=== PATIENT | male | born 1980 | race Caucasian/White ===

== ENCOUNTER 2016-05-30 00:28 | Emergency (ER) | payer SELFPAY ==
[~2016-05-30] VITALS: Ht 170.2 cm; Wt 57.0 kg
[~2016-05-30 00:28] MED LIST: CHLO.12%30 SSP; MMW SSP; PENI500T PO; TRAM50 PO; Z.0.NO CURRENT MEDS
[2016-05-30 00:33] VITALS: BP 120/70; PULSE 78; RESP 18; TEMP 98.1; O2SAT 98
[2016-05-30] MEDS ORDERED: SODIUM CHLOR 0.9% 1000 ML INJ 1,000 ML IV ONE ×2 (01:15→04:15)
--- NOTE | 2016-05-30 01:22 | PD ---
HPI Chief Complaint: Pain: Acute or Chronic Time Seen by Provider: 01:21 Travel History International Travel<30 days: No Contact w/Intl Traveler<30days: No Traveled to known affect area: No History of Present Illness HPI 35-year-old male with no significant medical history presents to the emergency department for evaluation of her lateral foot pain. Patient states that he is homeless. He has been walking everywhere. He reports blisters on his bilateral heels. Patient is with a bizarre affect and is having difficulty communicating with us exactly what he needs. He is very uncertain. He appears mildly paranoid. Denies illicit drug use. Denies psychiatric history. He has no other symptoms to report at this time. PFS Past Medical History Arthritis: Yes Anxiety: Yes Depression: Yes Cancer: No Cardiovascular Problems: No Diabetes: No Diminished Hearing: No Endocrine: No Genitourinary: Yes Hepatitis: No Hiatal Hernia: Yes (WITH MESH REPAIR) Kidney Stones: Yes Musculoskeletal: Yes Neurologic: No Psychiatric: Yes Respiratory: No Thyroid Disease: No Past Surgical History Abdominal Surgery: Yes (INGUINAL HERNIA REPAIR) Cardiac Surgery: No Ear Surgery: No Endocrine Surgery: No Eye Surgery: No Genitourinary Surgery: Yes (ESWL) Gynecologic Surgery: No Oral Surgery: No Pacemaker: No Thoracic Surgery: No Social History Alcohol Use: Yes (OCC) Tobacco Use: Yes (1 CIGGARS PPD) Substance Use: Yes (METH, DILAUDID, MORPHINE) Allergies-Medications (Allergen,Severity, Reaction): Coded Allergies: No Known Allergies (Verified , 05/30/16) Reported Meds & Prescriptions Reported Meds & Active Scripts Active No Active Prescriptions or Reported Medications Review of Systems Except as stated in HPI: all other systems reviewed are Neg Physical Exam Narrative GENERAL: Thin male patient, ambulatory no acute distress SKIN: Warm and dry. There are 2 blisters, 6 cm in diameter on the bilateral posterior heels that extend to the inferior aspect of the foot.. HEAD: Atraumatic. Normocephalic. EYES: Pupils equal and round. No scleral icterus. No injection or drainage. ENT: No nasal bleeding or discharge. Mucous membranes pink and moist. NECK: Trachea midline. No JVD. CARDIOVASCULAR: Regular rate and rhythm. No murmur appreciated. RESPIRATORY: No accessory muscle use. Clear to auscultation. Breath sounds equal bilaterally. GASTROINTESTINAL: Abdomen soft, non-tender, nondistended. Hepatic and splenic margins not palpable. MUSCULOSKELETAL: No obvious deformities. No clubbing. No cyanosis. No edema. NEUROLOGICAL: Awake and alert. No obvious cranial nerve deficits. Motor grossly within normal limits. Normal speech. Data Data Last Documented VS Vital Signs Date Time Temp Pulse Resp B/P Pulse Ox O2 Delivery O2 Flow Rate FiO2 05/30/16 00:33 98.1 78 18 120/70 98 Room Air Orders Iv Access Insert/Monitor (05/30/16 01:15) Complete Blood Count With Diff (05/30/16 01:15) Basic Metabolic Panel (Bmp) (05/30/16 01:15) Urinalysis - C+S If Indicated (05/30/16 01:15) Creatine Kinase (Cpk) (05/30/16 01:15) Sodium Chlor 0.9% 1000 Ml Inj (Ns 1000 M (05/30/16 01:15) CKMB (05/30/16 01:40) CKMB% (05/30/16 01:40) Sodium Chlor 0.9% 1000 Ml Inj (Ns 1000 M (05/30/16 04:15) Psych Screen (05/30/16 04:05) Ketorolac Inj (Toradol Inj) (05/30/16 04:15) Drug Screen, Random Urine (05/30/16 04:22) Ct Brain W/O Iv Contrast(Rout) (05/30/16 ) Labs Laboratory Tests Test 05/30/16 05/30/16 01:40 03:00 White Blood Count 15.8 TH/MM3 Red Blood Count 4.70 MIL/MM3 Hemoglobin 14.9 GM/DL Hematocrit 42.6 % Mean Corpuscular Volume 90.6 FL Mean Corpuscular Hemoglobin 31.6 PG Mean Corpuscular Hemoglobin 34.9 % Concent Red Cell Distribution Width 13.4 % Platelet Count 155 TH/MM3 Mean Platelet Volume 9.6 FL Neutrophils (%) (Auto) 77.0 % Lymphocytes (%) (Auto) 13.1 % Monocytes (%) (Auto) 9.6 % Eosinophils (%) (Auto) 0.2 % Basophils (%) (Auto) 0.1 % Neutrophils # (Auto) 12.1 TH/MM3 Lymphocytes # (Auto) 2.1 TH/MM3 Monocytes # (Auto) 1.5 TH/MM3 Eosinophils # (Auto) 0.0 TH/MM3 Basophils # (Auto) 0.0 TH/MM3 CBC Comment DIFF FINAL Differential Comment Sodium Level 137 MEQ/L Potassium Level 4.3 MEQ/L Chloride Level 102 MEQ/L Carbon Dioxide Level 28.1 MEQ/L Anion Gap 7 MEQ/L Blood Urea Nitrogen 20 MG/DL Creatinine 1.14 MG/DL Estimat Glomerular Filtration 73 ML/MIN Rate Random Glucose 104 MG/DL Calcium Level 9.1 MG/DL Total Creatine Kinase 542 U/L Creatine Kinase MB 4.8 NG/ML Creatine Kinase MB % 0.9 % Urine Color YELLOW Urine Turbidity CLEAR Urine pH 6.0 Urine Specific [place] 1.026 Urine Protein TRACE mg/dL Urine Glucose (UA) NEG mg/dL Urine Ketones 10 mg/dL Urine Occult Blood MOD Urine Nitrite NEG Urine Bilirubin NEG Urine Urobilinogen 2.0 MG/DL Urine Leukocyte Esterase NEG Urine RBC 93 /hpf Urine WBC 4 /hpf Urine Mucus FEW /lpf Microscopic Urinalysis Comment CULT NOT INDICATED MDM Medical Decision Making Medical Screen Exam Complete: Yes Emergency Medical Condition: Yes Medical Record Reviewed: Yes Differential Diagnosis Blisters versus contact dermatitis versus cellulitis Acute psychosis versus mood disorder versus personality disorder versus adjustment reaction disorder versus substance abuse Narrative Course 35-year-old male presents to emergency department for evaluation. Patient is this are. He is not clearly communicating his intentions being here in the emergency department. He does have blisters on his bilateral heels however he states keeps saying that he does not feel well and that something isn't right. He denies illicit drug use. He then goes to talk about his parents and then he is very anxious about interventions that are being ordered. CBC is a mild leukocytosis of 15.8. BMP is without acute concern. BUN is elevated at 20. Total creatine kinase is 542. Patient is given normal saline fluid less. Urinalysis is with 10 ketones, moderate occult blood, 93 RBCs, few mucus. Culture is not indicated. Patient has history of kidney stones. He he is not reporting any significant pain. I have advised that he follow-up with urology. Patient continues with bizarre behavior and does not have any documented psych history here in the emergency department. I have ordered a CT of his brain to evaluate for possible cause of his behavior. Pending no acute abnormality, he is medically cleared to undergo psychiatric screening for further evaluation and disposition recommendation. Diagnosis Primary Impression: Friction blister of the foot Qualified Code: S90.829A - Friction blister of the foot, unspecified laterality, initial encounter Additional Impression: Psychosis Qualified Code: F29 - Psychosis, unspecified psychosis type Scripts No Active Prescriptions or Reported Meds Condition: Stable Yael Patel May 30, 2016 01:21
[2016-05-30 01:59] LABS: AUTOMATED NEUTROPHIL # 12.1 TH/MM3 (1.8-7.7); BASOPHIL % 0.1 % (0.0-2.0); EOSINOPHIL % 0.2 % (0.0-4.0); HEMATOCRIT 42.6 % (39.0-51.0); HEMO FLAGS DIFF FINAL; LYMPH % 13.1 % (9.0-44.0); LYMPHOCYTE # 2.1 TH/MM3 (1.0-4.8); MEAN CELL VOLUME 90.6 FL (80.0-100.0); MEAN CORPUSCULAR HEMOGLOBIN 31.6 PG (27.0-34.0); MEAN CORPUSCULAR HGB CONC 34.9 % (32.0-36.0); MONO % 9.6 % (0.0-8.0); PLATELET COUNT 155 TH/MM3 (150-450); RED CELL DISTRIBUTION WIDTH 13.4 % (11.6-17.2); WHITE BLOOD COUNT 15.8 TH/MM3 (4.0-11.0)
[2016-05-30 02:08] LABS: BICARBONATE 28.1 MEQ/L (21.0-32.0); POTASSIUM 4.3 MEQ/L (3.5-5.1)
[2016-05-30 02:25] LABS: CKMB 4.8 NG/ML (0.5-3.6)
[2016-05-30] MEDS ORDERED: KETOROLAC TROMETHAMINE 30 MG/ML (IVP) VIAL IV PUSH ONE (04:15)
[2016-05-30 04:23] LABS: BLOOD, URINE MOD (NEG); COMMENT (UR) CULT NOT INDICATED; CULTURE IF INDICATED CULT NOT INDICATED; GLUCOSE,URINE NEG (NEG); KETONE, URINE 10 mg/dL (NEG); MUCUS URINE FEW /lpf (OCC); NITRITE,URINE NEG (NEG); URINE COLOR YELLOW (YELLW/STRAW)
[2016-05-30 05:01] LABS: AMPHETAMINE, URINE NEG (NEG); BARBITURATES, URINE NEG (NEG); COCAINE, URINE NEG (NEG)
--- NOTE | 2016-05-30 05:18 | RADRPT ---
EXAM DATE/TIME: 05/30/2016 04:59 [facility] COMPARISON: No previous studies available for comparison. INDICATIONS : Altered mental status, confusion. RADIATION DOSE: 28.55 CTDIvol (mGy) MEDICAL HISTORY : None SURGICAL HISTORY : None. ENCOUNTER: Initial ACUITY: 1 day PAIN SCALE: 0/10 LOCATION: cranial TECHNIQUE: Multiple contiguous axial images were obtained of the head. Using automated exposure control and adj ustment of the mA and/or kV according to patient size, radiation dose was kept as low as reasonably a chievable to obtain optimal diagnostic quality images. FINDINGS: CEREBRUM: The ventricles are normal for age. No evidence of midline shift, mass lesion, hemorrhage or acute in farction. No extra-axial fluid collections are seen. POSTERIOR FOSSA: The cerebellum and brainstem are intact. The 4th ventricle is midline. The cerebellopontine angle i s unremarkable. EXTRACRANIAL: The visualized portion of the orbits is intact. SKULL: The calvaria is intact. No evidence of skull fracture. CONCLUSION: Normal examination. Milan Day MD on May 30, 2016 at 5:16 Board Certified Radiologist. This report was verified electronically.
[2016-05-30 05:40] VITALS: BP 100/63; PULSE 72; RESP 16; O2SAT 96
[2016-05-30 07:00] VITALS: BP 115/77; PULSE 72; RESP 16; TEMP 98.4; O2SAT 99
[2016-05-30 10:08] VITALS: BP 118/77
== END 2016-05-30 10:17 | disposition home or self-care (01) ==
LOC: NEPB 00:28
DX: S90.822A Blister (nonthermal), left foot, initial encounter (principal); F29 Unspecified psychosis not due to a substance or known physiological condition; Z87.442 Personal history of urinary calculi; S90.821A Blister (nonthermal), right foot, initial encounter; Y93.01 Activity, walking, marching and hiking; Y92.9 Unspecified place or not applicable; Z59.0 Homelessness; R41.82 Altered mental status, unspecified
CPT/HCPCS: 70450; 80048; 80307; 81001; 82550; 82552; 85025; 96361; 96374; 99284; J1885; J7030

== ENCOUNTER 2017-05-29 17:14 | Inpatient (IN) | payer OTHER ==
[~2017-05-29] VITALS: Ht 170.2 cm; Wt 56.1 kg
[2017-05-29 17:55] VITALS: BP 104/77; PULSE 89; RESP 14; O2SAT 99
--- NOTE | 2017-05-29 18:37 | PD ---
HPI Chief Complaint: Psychiatric Symptoms Time Seen by Provider: 18:32 Travel History International Travel<30 days: No Contact w/Intl Traveler<30days: No Traveled to known affect area: No History of Present Illness HPI This is a 36-year-old male who presents under ex parte a signed by a magistrate judge. According to the paperwork the patient's mother reports over the past 2 years he has been acting bizarre, potentially suicidal. According to the paperwork many friends and the family members agree. The patient reports that he feels fine. He denies any drug or alcohol use. He denies any suicidal or homicidal ideation. The patient has no complaints at this time. PFS Past Medical History Medical History: Denies Significant Hx Arthritis: Yes Anxiety: Yes Depression: Yes Cancer: No Cardiovascular Problems: No Diabetes: No Diminished Hearing: No Endocrine: No Gastrointestinal Disorders: Yes Genitourinary: Yes Hepatitis: No Hiatal Hernia: Yes (WITH MESH REPAIR) Kidney Stones: Yes Musculoskeletal: Yes Neurologic: No Psychiatric: Yes Respiratory: No Thyroid Disease: No Tetanus Vaccination: Unknown Influenza Vaccination: No Past Surgical History Surgical History: No Previous Surgery Abdominal Surgery: Yes (INGUINAL HERNIA REPAIR) Cardiac Surgery: No Ear Surgery: No Endocrine Surgery: No Eye Surgery: No Genitourinary Surgery: Yes (ESWL) Gynecologic Surgery: No Oral Surgery: No Pacemaker: No Thoracic Surgery: No Other Surgery: Yes Social History Alcohol Use: No Tobacco Use: No Substance Use: No Allergies-Medications (Allergen,Severity, Reaction): Coded Allergies: No Known Allergies (Verified , 05/30/16) Reported Meds & Prescriptions Reported Meds & Active Scripts Active No Active Prescriptions or Reported Medications Review of Systems Except as stated in HPI: all other systems reviewed are Neg Physical Exam Narrative GENERAL: Poorly groomed male in no acute distress SKIN: Warm and dry. HEAD: Atraumatic. Normocephalic. EYES: Pupils equal and round. No scleral icterus. No injection or drainage. ENT: No nasal bleeding or discharge. Mucous membranes pink and moist. NECK: Trachea midline. No JVD. CARDIOVASCULAR: Regular rate and rhythm. No murmur appreciated. RESPIRATORY: No accessory muscle use. Clear to auscultation. Breath sounds equal bilaterally. MUSCULOSKELETAL: No obvious deformities. NEUROLOGICAL: Awake and alert. No obvious cranial nerve deficits. Motor grossly within normal limits. Normal speech. PSYCHIATRIC: Poor eye contact, quiet, paranoid, insight and judgment appear limited. Data Data Last Documented VS Vital Signs Date Time Temp Pulse Resp B/P (MAP) Pulse Ox O2 Delivery O2 Flow Rate FiO2 05/29/17 17:55 89 14 104/77 (86) 99 Room Air Orders Orders Complete Blood Count With Diff (05/29/17 17:32) Comprehensive Metabolic Panel (05/29/17 17:32) Thyroid Stimulating Hormone (05/29/17 17:32) Psych Screen (05/29/17 17:32) Drug Screen, Random Urine (05/29/17 17:32) MDM Medical Decision Making Medical Screen Exam Complete: Yes Emergency Medical Condition: Yes Medical Record Reviewed: Yes Differential Diagnosis Schizophrenia, bipolar disorder, acute psychosis, major depressive disorder, substance induced mood disorder Narrative Course 36-year-old male presents under ex parte for psychiatric evaluation. Mental health screening discussed with the patient. Psychiatric screen ordered. He is refusing lab work and there is no indication to force him to undertake lab work at this time. He is medically cleared for psychiatric disposition. Diagnosis Primary Impression: Medical clearance for psychiatric admission Scripts No Active Prescriptions or Reported Meds Cristhian Morocho May 29, 2017 18:37
[2017-05-29 19:47] LABS: BASOPHIL % 0.5 % (0.0-2.0); EOSINOPHIL # 0.2 TH/MM3 (0-0.4); EOSINOPHIL % 2.3 % (0.0-4.0); HEMOGLOBIN 16.2 GM/DL (13.0-17.0); LYMPH % 15.3 % (9.0-44.0); LYMPHOCYTE # 1.4 TH/MM3 (1.0-4.8); MEAN CELL VOLUME 89.9 FL (80.0-100.0); MEAN CORPUSCULAR HEMOGLOBIN 32.4 PG (27.0-34.0); MEAN PLATELET VOLUME 9.4 FL (7.0-11.0); MONOCYTE # 0.7 TH/MM3 (0-0.9); NEUT % 74.9 % (16.0-70.0); PLATELET COUNT 174 TH/MM3 (150-450); RED BLOOD COUNT 5.01 MIL/MM3 (4.50-5.90); RED CELL DISTRIBUTION WIDTH 13.8 % (11.6-17.2); WHITE BLOOD COUNT 9.4 TH/MM3 (4.0-11.0)
[2017-05-29 19:55] LABS: ALBUMIN 4.2 GM/DL (3.4-5.0); ALT (GPT) 32 U/L (12-78); AST (GOT) 34 U/L (15-37); BICARBONATE 28.9 MEQ/L (21.0-32.0); BLOOD UREA NITROGEN 12 MG/DL (7-18); CALCIUM 9.8 MG/DL (8.5-10.1); CHLORIDE 105 MEQ/L (98-107); CREATININE 1.02 MG/DL (0.60-1.30); GLOMERULAR FILTRATION RATE 82 ML/MIN (>89); GLUCOSE,RANDOM 102 MG/DL (74-106); SODIUM (NA) 139 MEQ/L (136-145)
[2017-05-29 20:05] LABS: ALKALINE PHOSPHATASE 76 U/L (45-117); TOTAL BILIRUBIN ADULT 0.4 MG/DL (0.2-1.0)
[2017-05-29 22:19] VITALS: BP 115/69; PULSE 58; RESP 18; O2SAT 100
[2017-05-30 06:44] VITALS: BP 104/58; PULSE 68; RESP 17; O2SAT 99
--- NOTE | 2017-05-30 08:42 | HHI.HP ---
Provisional Diagnosis Admission Date [place] I. Unspecified psychosis, r/o substance induced psychosis, r/o schizophrenia, r/o schizoaffective disorder [place] II. Deferred [place] III. No significant medical history [place] IV. 2 years ago, unemployed, noncompliance with psychotropics [place] V. 35 Certification of Person's Competence To Provide Express and Informed Consent I have personally examined Ernesto Franz , a person being served at [facility] on, May 30, 2017 08:17. Express and informed consent means consent voluntarily given in writing, by a competent person, after sufficient explanation and disclosure of the subject matter involved to enable the person to make a knowing and willful decision without any element of force, fraud, deceit, duress, or other form of constraint or coercion. This person is 18 years of age or older, is not now known to be incompetent to consent to treatment with a guardian advocate, and does not have a health care surrogate or proxy currently making medical treatment decisions. I have found this person to be one of the following: [] Competent to provide express and informed consent, as defined above, for voluntary admission to this facility and is competent to provide express and informed consent for treatment. He/she has the consistent capacity to make well reasoned, willful, and knowing decisions concerning his or her medical or mental health treatment. The person fully and consistently understands the purpose of the admission for examination/placement and is fully capable of personally exercising all rights assured [place] [X] Incompetent to provide express and informed consent to voluntary admission, and this is incompetent to provide express and informed consent to treatment. The person must be transferred to involuntary status and a petition for a guardian advocate filed with the Circuit Court. [] Refusing to provide express and informed consent to voluntary admission but is competent to provide express and informed consent for treatment. The person must be discharged or transferred to involuntary status. Form shall be completed within 24 hours of a person's arrival at the receiving facility and filed in the clinical record of each person: 1. Admitted on a voluntary basis 2. Permitted to provide express and informed consent to his/her own treatment 3. Allowed to transfer from involuntary to voluntary status 4. Prior to permitting a person to consent to his or her own treatment after having been previously found incompetent to consent to treatment. History of Present Illness Capacity: Lacks Capacity HPI The patient a 36-year-old man, , domiciled with his mother, unemployed, with psychiatric history of depression, 1 previous psychiatric hospitalization in [facility], no established outpatient care, the patient is not taking any psychotropic at this moment, no previous suicidal attempts, he denies the use of illegal drugs and alcohol, no significant medical history, who presents under ex-parte a signed by a probate judge. According to the paperwork the patient's mother reports over the past 2 years he has been acting bizarre, potentially suicidal. According to the paperwork many friends and the family members agree. The patient reports that he feels fine. He denies any drug or alcohol use. He denies any suicidal or homicidal ideation. The patient has no complaints at this time. Patient was seen today for psychiatric evaluation in the psychiatric ER. Chart was reviewed. The case was discussed with the charge and medical student Dr. Almaguer, collateral information from his mother Mary Thompson, was obtained. On psychiatric evaluation the patient is found sleeping in his bed, but he is arousable. The patient reports that he feels okay, says that he wants to go home "I have things to do". However, the patient is guarded, internally stimulated, with prominent blocking thought, poverty of speech and problems with word finding. Patient seems to be paranoid, staring to the roof, avoiding eye contact, and at times even laughing inappropriately and with a very odd affect and oddly related. The patient does not elaborate about the reason and circumstances of the ex-parted. He says that he is here because "maybe my ideas has been no very clear", he also says that "sometimes my thoughts are fast". But the patient will not elaborate about any of these statements. The patient denies suicidal and homicidal ideation, he denies visual and auditory hallucinations. during my evaluation I asked to the patient if he's scared about people in the street trying to read his mind and he became very thoughtful about this, at the same time that when I ask him to watch the camera the patient became increasingly suspicious and was unable to look to the camera was visibly scared. The patient denies the use of illegal drugs and alcohol. We called his mother for collateral information, the mother states that the patient has been included, isolated and not leaving his room very often for the last 2 years , but these behavior has exacerbated in the last 2 weeks. Says that the patient has not been sleeping, not eating, not bathing, not taking care of himself. She says that the patient was admitted once in the past in [facility] voluntarily, being July 2016, he was given medication, most probably never took it, but she doesn't remember the name of the medication and she doesn't remember what diagnosis was given to him. She also provide information that the patient has a sibling with psychiatric illnesses, his sister has bipolar disorder. She also added patient's 2 years ago and since then the patient has been most probably depressed and his behavior has changed. She also states that the patient has been verbalizing suicidal ideation. Review of Systems Constitutional: DENIES: Diaphoretic episodes, Fatigue, Fever, Weight gain, Weight loss, Chills, Dizziness, Change in appetite, Night Sweats Endocrine: DENIES: Heat/cold intolerance, Polydipsia, Polyuria, Polyphagia Eyes: DENIES: Blurred vision, Diplopia, Eye inflammation, Eye pain, Vision loss , Photosensitivity, Double Vision Ears, nose, mouth, throat: DENIES: Tinnitus, Hearing loss, Vertigo, Nasal discharge, Oral lesions, Throat pain, Hoarseness, Ear Pain, Running Nose, Epistaxis, Sinus Pain, Toothache, Odynophagia Respiratory: DENIES: Apneas, Cough, Snoring, Wheezing, Hemoptysis, Sputum production, Shortness of breath Cardiovascular: DENIES: Chest pain, Palpitations, Syncope, Dyspnea on Exertion , PND, Lower Extremity Edema, Orthopnea, Claudication Gastrointestinal: DENIES: Abdominal pain, Black stools, Bloody stools, Constipation, Diarrhea, Nausea, Vomiting, Difficulty Swallowing, Anorexia Genitourinary: DENIES: Sexual dysfunction, Urinary frequency, Urinary incontinence, Urgency, Hematuria, Dysuria, Nocturia, Penile Discharge, Testicular Pain, Testicular Swelling Musculoskeletal: DENIES: Joint pain, Muscle aches, Stiffness, Joint Swelling, Back pain, Neck pain Integumentary: DENIES: Abnormal pigmentation, Nail changes, Pruritus, Rash Hematologic/lymphatic: DENIES: Bruising, Lymphadenopathy Immunologic/allergic: DENIES: Eczema, Urticaria Neurologic: DENIES: Abnormal gait, Headache, Localized weakness, Paresthesias, Seizures, Speech Problems, Tremor, Poor Balance Psychiatric: COMPLAINS OF: Suicidal Ideation, Delusions, DENIES: Anxiety, Confusion, Mood changes, Depression, Hallucinations, Agitation, Homicidal Ideation Past Psych History Violence risk - others (6 mos) moderately elevated Violence risk - self (6 mos) elevated Substance Abuse History Drugs/Alcohol past 12 months The patient denies the use of alcohol and illegal drugs recently. However as per documentation review the patient has history of alcohol use disorder in the past Past Family Social History Coded Allergies: No Known Allergies (Verified , 05/30/16) No Active Prescriptions or Reported Meds No medications at this moment Family Psych History Sister with bipolar disorder Social History He was born and raised in [place], he lives with his mother in [facility], unemployed at the moment, is , his highest level of education is 10th grade Patient's Strengths (min. 2) Family support Physical Exam No tremors, no EPS, no psychomotor agitation or retardation, no stiffness present Vital Signs Vital Signs Date Time Temp Pulse Resp B/P (MAP) Pulse Ox O2 Delivery O2 Flow Rate FiO2 05/30/17 06:44 68 17 104/58 (73) 99 Room Air I/O 05/30/17 05/30/17 05/31/17 08:00 16:00 00:00 Intake Total 950 ml Balance 950 ml Lab Results Test 05/29/17 18:45 05/30/17 02:21 White Blood Count 9.4 TH/MM3 Red Blood Count 5.01 MIL/MM3 Hemoglobin 16.2 GM/DL Hematocrit 45.0 % Mean Corpuscular Volume 89.9 FL Mean Corpuscular Hemoglobin 32.4 PG Mean Corpuscular Hemoglobin Concent 36.0 % Red Cell Distribution Width 13.8 % Platelet Count 174 TH/MM3 Mean Platelet Volume 9.4 FL Neutrophils (%) (Auto) 74.9 % Lymphocytes (%) (Auto) 15.3 % Monocytes (%) (Auto) 7.0 % Eosinophils (%) (Auto) 2.3 % Basophils (%) (Auto) 0.5 % Neutrophils # (Auto) 7.0 TH/MM3 Lymphocytes # (Auto) 1.4 TH/MM3 Monocytes # (Auto) 0.7 TH/MM3 Eosinophils # (Auto) 0.2 TH/MM3 Basophils # (Auto) 0.0 TH/MM3 CBC Comment AUTO DIFF Differential Comment AUTO DIFF CONFIRMED Platelet Estimate NORMAL Platelet Morphology Comment NORMAL Blood Urea Nitrogen 12 MG/DL Creatinine 1.02 MG/DL Random Glucose 102 MG/DL Total Protein 8.0 GM/DL Albumin 4.2 GM/DL Calcium Level 9.8 MG/DL Alkaline Phosphatase 76 U/L Aspartate Amino Transf (AST/SGOT) 34 U/L Alanine Aminotransferase (ALT/SGPT) 32 U/L Total Bilirubin 0.4 MG/DL Sodium Level 139 MEQ/L Potassium Level 4.0 MEQ/L Chloride Level 105 MEQ/L Carbon Dioxide Level 28.9 MEQ/L Anion Gap 5 MEQ/L Estimat Glomerular Filtration Rate 82 ML/MIN Thyroid Stimulating Hormone 3rd Gen 1.190 uIU/ML Urine Opiates Screen NEG Urine Barbiturates Screen NEG Urine Amphetamines Screen NEG Urine Benzodiazepines Screen NEG Urine Cocaine Screen NEG Urine Cannabinoids Screen NEG Mental Status Examination Appearance: Appropriate Consciousness: Alert Orientation: x4 Motor Activity: Normal gait Speech: Hesitant, Slow Language: Adequate Fund of Knowledge: Adequate Attention and Concentration: Inadequate Memory: Unremarkable Mood: Oppositional Affect: Flat, Other (odd) Thought Process & Associations: Other (concrete, monotonous ) Thought Content: Bizarre thinking, Thought blocking, Preoccupations Hallucination Type: None Delusion Type: Bizarre, Paranoid Suicidal Ideation: Yes Suicidal Plan: No Suicidal Intention: No Homicidal Ideation: No Homicidal Plan: No Homicidal Intention: No Insight: Poor Judgment: Poor Assessment & Plan Problem List: (1) Unspecified psychosis ICD Codes: F29 - Unspecified psychosis not due to a substance or known physiological condition Assessment & Plan: On psychiatric evaluation today the patient presents with prominent blocking thought, poverty of speech, speech delay, flat and odd affect , visible paranoia, superficially cooperative with the interview. However, as per mother the patient has been secluded, isolated and not being himself for the last 2 years since his , but in the last 2 weeks these behavior has increased in severity, and the patient has not been taking showers, has not been eating, participating poorly in social activities, sleeping very poorly, and he has not been taking his medications. Apparently the patient has a psychiatric history, the mother doesn't know exactly, he supposed to be taking medication and he is not. We tried to get collateral information from [facility], where he was admitted, but we could not reach anybody at this moment. The patient denies the use of illegal drugs and alcohol, and his toxicology is negative. Definitely, the patient has an increased risk of danger to self and others due to the level of psychosis and he needs psychiatric admission for stabilization. At this moment is unclear what is this presentation at etiologically related with, but in the differential schizophrenia vs schizoaffective disorder vs substance-induced disorder should be carefully workout. I'm going to start the patient in Risperdal 1 mg twice a day for psychosis. I also going to start a petition for involuntary admission and would place a consult for second opinion. Patient will be transferred to [address]. steam table worker intervention for psychosocial assessment, collateral information, individual and group activities, and also to coordinate a safe discharge. Assessment & Plan Estimated LOS: Stoney Mota MD May 30, 2017 08:42
[2017-05-30] MEDS ORDERED: ACETAMINOPHEN 325 MG TAB PO PRN (09:00)
[2017-05-30] MEDS ORDERED: LORazepam 0.5 MG TAB PO PRN (09:00)
[2017-05-30] MEDS ORDERED: LORazepam 1 MG TAB PO PRN (09:00)
[2017-05-30] MEDS ORDERED: MAGNESIUM HYDROXIDE SUSP 30 ML CUP PO PRN (09:00)
[2017-05-30] MEDS ORDERED: LORazepam 2 MG/ML VIAL IM PRN ×2 (09:00)
[2017-05-30] MEDS: risperiDONE 0.5 MG TAB PO SCH ×2 (09:00→20:41)
[2017-05-30] MEDS: NICOTINE 21 MG/24 HR PATCH T-DERMAL SCH (09:00)
[2017-05-30] MEDS ORDERED: ALUMINUM/MAGNESIUM/SIMETH 30 ML CUP PO PRN (09:00)
[2017-05-30 18:00] VITALS: BP 105/58; PULSE 71; RESP 18; TEMP 98.7; O2SAT 97
[2017-05-30] MEDS: REMOVE OLD NICODERM (NICOTINE) PATCH T-DERMAL SCH (20:41)
[2017-05-31 06:03] VITALS: BP 102/59; PULSE 62; RESP 17
[2017-05-31] MEDS: risperiDONE 0.5 MG TAB PO SCH ×2 (09:00→20:56)
[2017-05-31] MEDS: NICOTINE 21 MG/24 HR PATCH T-DERMAL SCH (09:00)
--- NOTE | 2017-05-31 12:10 | PD.PSY.CON ---
Provisional Diagnosis Admission Date May 30, 2017 at 09:01 [place] I. Unspecified psychosis, r/o substance induced psychosis, r/o schizophrenia, r/o schizoaffective disorder [place] II. Deferred [place] III. No significant medical history [place] IV. 2 years ago, unemployed, noncompliance with psychotropics [place] V. 35 History of Present Illness Service Psychiatry Consult Requested By psychiatry Reason for Consult 2nd opinion Primary Care Physician No Primary Care Physician HPI Pt seen and discussed with staff. chart reviewed. Pt is a 36YOWM who was admitted to [facility] under an ex-parte alleging non compliance with psychiatric medications, bizarre behavior and suicidal ideations. Staff report that pt is seclusive to his room, only coming out for meals. He is noted to be paranoid and to present with prominent thought blocking and thought disorganization. He is disheveled and malodorous. He is a very poor historian and cooperates minimally with interview. He becomes visibly stressed with repeated interviewing and huddles deeper into blankets avoiding eye contact. Past Family Social History Coded Allergies: No Known Allergies (Verified Allergy, Unknown, 05/30/17) No Active Prescriptions or Reported Meds Current Medications Medications (Trade) Dose Ordered Sig/Stephanie Route Start Time Stop Time Status Last Admin (Ativan) 1 mg Q6H PRN PO 05/30/17 09:00 (Ativan Inj) 1 mg Q6H PRN IM 05/30/17 09:00 (Tylenol) 650 mg Q4H PRN PO 05/30/17 09:00 (Milk Of Magnesia Liq) 30 ml DAILY PRN PO 05/30/17 09:00 (Mag-Al Plus Susp Liq) 30 ml Q6H PRN PO 05/30/17 09:00 (Habitrol 21 Mg Patch.24 Hr) 1 patch DAILY T-DERMAL 05/30/17 09:00 (risperDAL) 0.5 mg BID PO 05/30/17 09:00 Miscellaneous Information 1 HS T-DERMAL 05/30/17 21:00 Family Psych History poor historian Social History lives with mother, unemployed, Patient's Strengths (min. 2) Family support Physical Exam Vital Signs Vital Signs Date Time Temp Pulse Resp B/P (MAP) Pulse Ox O2 Delivery O2 Flow Rate FiO2 2/10/18 06:03 62 17 102/59 (73) 05/30/17 18:00 98.7 97 05/30/17 06:44 Room Air Mental Status Examination Appearance: Appropriate Consciousness: Alert Orientation: x4 Motor Activity: Normal gait Speech: Hesitant, Slow Language: Adequate Fund of Knowledge: Adequate Attention and Concentration: Inadequate Memory: Unremarkable Mood: Oppositional Affect: Flat, Other (odd) Thought Process & Associations: Other (concrete, monotonous ) Thought Content: Bizarre thinking, Thought blocking, Preoccupations Hallucination Type: None Delusion Type: Bizarre, Paranoid Suicidal Ideation: No (unreliable) Suicidal Plan: No Suicidal Intention: No Homicidal Ideation: No Homicidal Plan: No Homicidal Intention: No Insight: Poor Judgment: Poor Assessment & Plan Problem List: (1) Unspecified psychosis ICD Codes: F29 - Unspecified psychosis not due to a substance or known physiological condition Assessment & Plan I agree that pt meets criteria for involuntary hospitalization secondary to florid psychosis, self neglect and recent history of suicidal ideations. 2nd opinion paperwork filled out as well as request for HCS. I attempted to contact pt's mother, Mary Schofield to request her to be HCS and to obtain consent for risperidone trial that Dr. Avilez ordered yesterday morning but mother was unavailable. A message was requesting return call. Estimated LOS: Merly Rodriguez MD May 31, 2017 12:10
[2017-05-31] MEDS: REMOVE OLD NICODERM (NICOTINE) PATCH T-DERMAL SCH (20:56)
[2017-06-01 05:43] VITALS: BP 113/56; PULSE 51; RESP 16; TEMP 98.6; O2SAT 96
[2017-06-01] MEDS: risperiDONE 0.5 MG TAB PO SCH ×2 (09:00→20:14)
[2017-06-01] MEDS: NICOTINE 21 MG/24 HR PATCH T-DERMAL SCH (09:00)
--- NOTE | 2017-06-01 11:21 | HHI.PYPN ---
Subjective Remarks Pt seen and discussed with staff. He remains with disorganized thought process and paranoia. He has only come out of room for meals. He has not engaged in any hygiene activities. Attempts to reach family for medication consents have not been successful. He states that he is planning to go fishing today after lunch. Mental Status Examination Appearance: Disheveled Consciousness: Alert Orientation: x4 Motor Activity: Normal gait Speech: Hesitant, Slow Language: Adequate Fund of Knowledge: Adequate Attention and Concentration: Inadequate Memory: Unremarkable Mood: Oppositional Affect: Flat, Other (odd) Thought Process & Associations: Other (concrete, monotonous ) Thought Content: Bizarre thinking, Thought blocking, Preoccupations Hallucination Type: None Delusion Type: Bizarre, Paranoid Suicidal Ideation: No (unreliable) Suicidal Plan: No Suicidal Intention: No Homicidal Ideation: No Homicidal Plan: No Homicidal Intention: No Insight: Poor Judgment: Poor Results Vitals/IOs Vital Signs Date Time Temp Pulse Resp B/P (MAP) Pulse Ox O2 Delivery O2 Flow Rate FiO2 06/01/17 05:43 98.6 51 16 113/56 (75) 96 05/30/17 06:44 Room Air Assessment & Plan Problem List: (1) Unspecified psychosis ICD Codes: F29 - Unspecified psychosis not due to a substance or known physiological condition Assessment & Plan Will continue to attempt to reach family for HCS and to get consent to start medication consent. Otherwise will have to wait until GA appointed. Will continue hospitalization for safety. Estimated LOS: days Justification for Cont. Inpt. severe disorganization of thought process and psychosis leading to high risk of self neglect. Merly Branch MD Jun 01, 2017 11:21
[2017-06-01 16:00] VITALS: BP 107/58; PULSE 64; RESP 17; TEMP 97.9; O2SAT 97
[2017-06-01] MEDS: REMOVE OLD NICODERM (NICOTINE) PATCH T-DERMAL SCH (20:14)
[2017-06-02 05:43] VITALS: BP 104/57; PULSE 63; RESP 17; TEMP 97.4; O2SAT 100
[2017-06-02] MEDS: NICOTINE 21 MG/24 HR PATCH T-DERMAL SCH (09:00)
--- NOTE | 2017-06-02 09:08 | HHI.PYPN ---
Subjective Chief Complaint: Psychosis Remarks Patient seen and examined with nurse. Chart reviewed. Ex parte reviewed. Case discussed with nursing staff who reports patient is watchful and guarded. On my examination today, the patient exhibits poor eye contact. He is fairly hypoverbal and flat. He denies any audiovisual hallucinations but appears internally preoccupied. He is indeed fairly guarded. He denies any SI or HI but seems unreliable to contract for safety. He does not believe that he has any mental illness and further believes that he should be released from the hospital. He has no physical complaints presently. Spoke with patient's mother/healthcare surrogate. She notes that the patient's 2 years ago and since that time he has been increasingly depressed. He has also begun to neglect self-care per mother. She notes that he has no prior psychiatric history. She does note that he has a cousin with depression and his sister has BPAD/schizophrenia. Patient's mother is in agreement with the treatment plan as outlined below. Review of Systems ROS Limitations: Psychotic, Poor Historian Except as stated in HPI: all other systems reviewed are Neg Mental Status Examination Appearance: Disheveled Consciousness: Alert Orientation: x4 Motor Activity: Other (no motor abnormalities noted) Speech: Hesitant, Slow Language: Adequate Fund of Knowledge: Adequate Attention and Concentration: Easily Distracted Memory: Unremarkable Mood: Other (denies issues with mood) Affect: Flat, Other (ongoing odd affect) Thought Process & Associations: Other (remains fairly concrete) Thought Content: Bizarre thinking, Thought blocking, Preoccupations Hallucination Type: Other (denies AVH but appears internally stimulated) Delusion Type: Other (quite guarded) Suicidal Ideation: No (unreliable to contract for safety) Suicidal Plan: No Suicidal Intention: No Homicidal Ideation: No (unreliable to contract for safety) Homicidal Plan: No Homicidal Intention: No Insight: Poor Judgment: Poor Results Labs Labs reviewed: CBC unremarkable. CMP unremarkable except for mildly decreased GFR. TSH within normal limits. Urine toxicology negative. Vitals/IOs Vital Signs Date Time Temp Pulse Resp B/P (MAP) Pulse Ox O2 Delivery O2 Flow Rate FiO2 06/02/17 05:43 97.4 63 17 104/57 (73) 100 05/30/17 06:44 Room Air Assessment & Plan Problem List: (1) Psychosis ICD Codes: F29 - Unspecified psychosis not due to a substance or known physiological condition Status: Acute Assessment & Plan Form of patient's mental illness seems most consistent with psychotic process, although mood disorder with psychotic features is in the differential. Discontinue Risperdal and replace with Seroquel 50mg BID with plans to titrate to effect. Check EKG for QTc. Ativan p.r.n. anxiety, Benadryl p.r.n. EPS or insomnia. Continue to monitor on high acuity unit. Continue other meds and care as ordered. Justification for Cont. Inpt. Med changes. Concern for impairment in self-care. Impairment in reality construction. Risk for decompensation in less restrictive setting. Discharge Planning Pending psychiatric stabilization. Problem Qualifiers (1) Psychosis: Qualified Codes: F28 - Other psychotic disorder not due to a substance or known physiological condition Lasha Crawford MD Jun 02, 2017 09:08
[2017-06-02] MEDS ORDERED: diphenhydrAMINE HCL 50 MG CAP PO PRN (09:15)
[2017-06-02] MEDS ORDERED: diphenhydrAMINE HCL 50 MG/ML VIAL IM PRN (09:15)
[2017-06-02] MEDS: QUEtiapine FUMARATE 25 MG TAB PO SCH (20:59)
[2017-06-02] MEDS: REMOVE OLD NICODERM (NICOTINE) PATCH T-DERMAL SCH (21:00)
[2017-06-03 05:36] VITALS: BP 96/53; PULSE 52; RESP 14; TEMP 97.8; O2SAT 94
[2017-06-03 07:59] VITALS: BP 99/58; PULSE 63; RESP 20; TEMP 97; O2SAT 100
[2017-06-03] MEDS: QUEtiapine FUMARATE 25 MG TAB PO SCH (08:39)
[2017-06-03] MEDS: NICOTINE 21 MG/24 HR PATCH T-DERMAL SCH (08:40)
--- NOTE | 2017-06-03 12:24 | HHI.PYPN ---
Subjective Chief Complaint: Psychosis Remarks Patient seen and examined with nurse and nurse practitioner. Chart reviewed. Case discussed with nursing staff reports the patient refused his EKG. Charting indicates that the patient 800% of meals yesterday and slept 7 hours. Case discussed in treatment team. On my examination today, the patient denies any issues with low mood or other depressive symptoms. He is an extremely vague historian, and although he produces a normal quantity of speech, it is rambling and largely content-free. He does acknowledge 's passing 2 years ago, but there does not seem to be much affect associated with this. He denies any SI/HI or AVH when asked. Seroquel was not given last night, reportedly because nurse was not aware consent had been obtained, and I have ordered Seroquel dose for this morning held because BP was on the lower side and I did not want to make patient hypotensive. No physical complaints. Review of Systems ROS Limitations: Psychotic, Poor Historian Except as stated in HPI: all other systems reviewed are Neg Mental Status Examination Appearance: Disheveled Consciousness: Alert Orientation: x4 Motor Activity: Other (no abnormal motor movements noted) Speech: Hesitant, Slow Language: Other (vague) Fund of Knowledge: Adequate Attention and Concentration: Easily Distracted Memory: Unremarkable Mood: Other (again denies issues with mood) Affect: Flat, Other (ongoing odd affect) Thought Process & Associations: Other (vague) Thought Content: Bizarre thinking, Thought blocking Hallucination Type: Other (denies AVH) Delusion Type: Other (somewhat guarded) Suicidal Ideation: No (unreliable to contract for safety) Suicidal Plan: No Suicidal Intention: No Homicidal Ideation: No (unreliable to contract for safety) Homicidal Plan: No Homicidal Intention: No Insight: Poor Judgment: Poor Results Labs Labs reviewed. Vitals/IOs Vital Signs Date Time Temp Pulse Resp B/P (MAP) Pulse Ox O2 Delivery O2 Flow Rate FiO2 06/03/17 07:59 97.0 63 20 99/58 (72) 100 Assessment & Plan Problem List: (1) Psychosis ICD Codes: F29 - Unspecified psychosis not due to a substance or known physiological condition Status: Acute Assessment & Plan I continue to suspect a psychotic process, possibly with some degree of thought disorganization manifesting itself in patient's vague, content-free speech. However, diagnosis is unclear. Patient certainly does not seem depressed, as had been reported by mother. I will request neuropsych eval with MMPI to try to clarify diagnosis. I will discontinue the Seroquel and replace with Abilify once consent has been obtained from [facility] as this latter agent is less associated with hypotension. I did leave a generic voicemail for patient's mother/ healthcare surrogate requesting a call back. Continue to monitor on an inpatient unit. Continue other medications and care as ordered. Justification for Cont. Inpt. Concern for impairment in self-care. Risk for decompensation in less restrictive environment. Discharge Planning Pending stabilization Request HC Surrog/Guard Advoc?: Yes Problem Qualifiers (1) Psychosis: Qualified Codes: F28 - Other psychotic disorder not due to a substance or known physiological condition Lasha Crawford MD Jun 03, 2017 12:24
[2017-06-03] MEDS ORDERED: ARIPiprazole 10 MG TAB PO SCH (14:15)
[2017-06-03 18:23] VITALS: BP 105/57; PULSE 64; RESP 16; TEMP 98.2; O2SAT 98
[2017-06-04 05:58] VITALS: BP 104/50; PULSE 65; RESP 16; TEMP 96.8; O2SAT 95
[2017-06-04 08:23] LABS: BICARBONATE 31.2 MEQ/L (21.0-32.0); BLOOD UREA NITROGEN 22 MG/DL (7-18); CALCIUM 8.9 MG/DL (8.5-10.1); CHLORIDE 104 MEQ/L (98-107); CHOLESTEROL 106 MG/DL (120-200); CREATININE 0.98 MG/DL (0.60-1.30); GLOMERULAR FILTRATION RATE 86 ML/MIN (>89); GLUCOSE,RANDOM 75 MG/DL (74-106); SODIUM (NA) 140 MEQ/L (136-145)
[2017-06-04 08:26] LABS: CHOLESTEROL/ HDL RATIO 1.79 RATIO; HDL CHOLESTEROL 59.1 MG/DL (40.0-60.0); LDL CHOLESTEROL 31 MG/DL (0-99); TRIGLYCERIDES 80 MG/DL (42-150)
--- NOTE | 2017-06-04 08:58 | HHI.PYPN ---
Subjective Chief Complaint: Psychosis Remarks Patient seen and examined with nurse and nurse practitioner. Chart reviewed. Patient is eating meals and slept 8 hours overnight. Case discussed with nursing staff who reports that the patient refused laboratories and had a marked , fearful reaction to even the idea of having laboratories drawn. Case discussed with counselor. On my examination today, the patient remains an exceedingly vague historian. He continues to exhibit odd, voluminous speech with limited information content. He does not believe he has a mental illness. He denies SI/HI/AVH. I try to ascertain why the patient had such a visceral reaction to having labs drawn (he subsequently did allow this to be done), but he cannot provide a meaningful answer. He does seem quite defensive on this point. No physical complaints presently. I again tried to reach patient's mother/HCS at the number listed in the EMR. I left a generic VM requesting a call back. Review of Systems ROS Limitations: Psychotic, Poor Historian Except as stated in HPI: all other systems reviewed are Neg Mental Status Examination Appearance: Disheveled Consciousness: Alert Orientation: x4 Motor Activity: Other (no motor abnormalities noted) Speech: Hesitant, Slow Language: Other (vague with limited information content) Fund of Knowledge: Adequate Attention and Concentration: Easily Distracted Memory: Unremarkable Mood: Other (no issues with mood) Affect: Other (odd affect. Somewhat irritable and defensive when discussing the blood draw.) Thought Process & Associations: Other (vague) Thought Content: Thought blocking Hallucination Type: Other (denies AVH) Delusion Type: Other (remains a little bit guarded) Suicidal Ideation: No (unreliable to contract for safety) Suicidal Plan: No Suicidal Intention: No Homicidal Ideation: No (unreliable to contract for safety) Homicidal Plan: No Homicidal Intention: No Insight: Poor Judgment: Poor Results Labs Test 06/04/17 06:04 Blood Urea Nitrogen 22 MG/DL Creatinine 0.98 MG/DL Random Glucose 75 MG/DL Calcium Level 8.9 MG/DL Sodium Level 140 MEQ/L Potassium Level 4.1 MEQ/L Chloride Level 104 MEQ/L Carbon Dioxide Level 31.2 MEQ/L Anion Gap 5 MEQ/L Estimat Glomerular Filtration Rate 86 ML/MIN Triglycerides Level 80 MG/DL Cholesterol Level 106 MG/DL LDL Cholesterol 31 MG/DL HDL Cholesterol 59.1 MG/DL Cholesterol/HDL Ratio 1.79 RATIO Labs reviewed. Vitals/IOs Vital Signs Date Time Temp Pulse Resp B/P (MAP) Pulse Ox O2 Delivery O2 Flow Rate FiO2 06/04/17 05:58 96.8 65 16 104/50 (68) 95 Assessment & Plan Problem List: (1) Psychosis ICD Codes: F29 - Unspecified psychosis not due to a substance or known physiological condition Status: Acute Assessment & Plan I continue to suspect some sort of psychotic process in this patient. Neuropsych eval is pending, as is OT eval. Anisha is on hold for lack of consent from [facility]; I did try to reach mother again today. Continue to monitor on inpatient unit. Continue other medications and care as ordered. Justification for Cont. Inpt. Monitoring for impairment in self-care. Discharge Planning Pending outcome of [place] [facility] tomorrow. Request HC Surrog/Guard Advoc?: Yes Problem Qualifiers (1) Psychosis: Qualified Codes: F28 - Other psychotic disorder not due to a substance or known physiological condition Lasha Crawford MD Jun 04, 2017 08:58
[2017-06-04 17:14] LABS: HEMOGLOBIN A1C 5.1 % (4.3-6.0)
[2017-06-04 17:35] VITALS: BP 108/56; PULSE 70; RESP 18; TEMP 97.6; O2SAT 98
--- NOTE | 2017-06-05 10:10 | HHI.DS ---
Psychiatry Discharge Summary Inpatient Psychiatric care?: Yes Advance Directive: No Reason Not Provided: DOES NOT HAVE Mental Health AdvanceDirective: No Health Care Proxy: No Admission Admission Date May 30, 2017 at 09:01 Admission Diagnosis: (1) Unspecified psychosis ICD Code: F29 - Unspecified psychosis not due to a substance or known physiological condition Brief History The patient a 36-year-old man, , domiciled with his mother, unemployed, with psychiatric history of depression, 1 previous psychiatric hospitalization in [facility], no established outpatient care, the patient is not taking any psychotropic at this moment, no previous suicidal attempts, he denies the use of illegal drugs and alcohol, no significant medical history, who presents under ex-parte a signed by a compensation advisor. According to the paperwork the patient's mother reports over the past 2 years he has been acting bizarre, potentially suicidal. According to the paperwork many friends and the family members agree. The patient reports that he feels fine. He denies any drug or alcohol use. He denies any suicidal or homicidal ideation. The patient has no complaints at this time. Patient was seen today for psychiatric evaluation in the psychiatric ER. Chart was reviewed. The case was discussed with the charge and medical student Dr. Almaguer, collateral information from his mother Mary Thompson, was obtained. On psychiatric evaluation the patient is found sleeping in his bed, but he is arousable. The patient reports that he feels okay, says that he wants to go home "I have things to do". However, the patient is guarded, internally stimulated, with prominent blocking thought, poverty of speech and problems with word finding. Patient seems to be paranoid, staring to the roof, avoiding eye contact, and at times even laughing inappropriately and with a very odd affect and oddly related. The patient does not elaborate about the reason and circumstances of the ex-parted. He says that he is here because "maybe my ideas has been no very clear", he also says that "sometimes my thoughts are fast". But the patient will not elaborate about any of these statements. The patient denies suicidal and homicidal ideation, he denies visual and auditory hallucinations. during my evaluation I asked to the patient if he's scared about people in the street trying to read his mind and he became very thoughtful about this, at the same time that when I ask him to watch the camera the patient became increasingly suspicious and was unable to look to the camera was visibly scared. The patient denies the use of illegal drugs and alcohol. We called his mother for collateral information, the mother states that the patient has been included, isolated and not leaving his room very often for the last 2 years , but these behavior has exacerbated in the last 2 weeks. Says that the patient has not been sleeping, not eating, not bathing, not taking care of himself. She says that the patient was admitted once in the past in [facility] voluntarily, being July 2016, he was given medication, most probably never took it, but she doesn't remember the name of the medication and she doesn't remember what diagnosis was given to him. She also provide information that the patient has a sibling with psychiatric illnesses, his sister has bipolar disorder. She also added patient's 2 years ago and since then the patient has been most probably depressed and his behavior has changed. She also states that the patient has been verbalizing suicidal ideation. Tobacco Use In Past 30 Days: No Tobacco Past 30 Days Alcohol Use: Never Hospital Course Patient was admitted to a locked, inpatient psychiatric unit. Appropriate precautions were in place throughout patient's hospital stay. Patient was seen and examined on the unit by psychiatry and also visited by counselor. There was no evidence of any suicidality or homicidality on the inpatient unit. Patient was noted to take meals, albeit with some prompting, and also slept fairly well on the unit. Collateral was obtained from the patient's mother. Occupational therapy evaluation was obtained. Neuropsychology consultation was requested and was scheduled to be completed this afternoon. Patient's case was presented to the [facility], and the compensation advisor has ordered his discharge over my objection. Patient is declining voluntary psychiatric hospitalization. I will discharge the patient AGAINST MEDICAL ADVICE. Patient is declining any sort of follow-up per counselor's notes. Patient to return to psychiatric emergency room for any concerning psychiatric symptoms. Results Blood Pressure 108 / 56 Vital Signs Date Time Temp Pulse Resp B/P (MAP) Pulse Ox O2 Delivery O2 Flow Rate FiO2 06/04/17 17:35 97.6 70 18 108/56 (73) 98 Laboratory Tests Test 06/04/17 06:04 Blood Urea Nitrogen 22 MG/DL (7-18) Estimat Glomerular Filtration Rate 86 ML/MIN (>89) Cholesterol Level 106 MG/DL (120-200) Laboratory Results Test 06/04/17 06:04 Cholesterol Level 106 MG/DL (120-200) HDL Cholesterol 59.1 MG/DL (40.0-60.0) Hemoglobin A1c 5.1 % (4.3-6.0) LDL Cholesterol 31 MG/DL (0-99) Triglycerides Level 80 MG/DL (42-150) Summary of Procedures None done Imaging None done Pending results at discharge: No Medications # of Antipsychotic meds at D/C: 0 Approp Antipsych med options 1 - Minimum of three failed multiple trials of monotherapy. 2 - Documented plan to taper to monotherapy due to previous use of multiple meds OR cross-taper in progress at D/C. 3 - Documentation of augmentation of Clozapine. 4 - Justification other than those listed in allowable values 1-3, document here : Discharge Discharge Date: Jun 05, 2017 Discharge Diagnosis: (1) Psychosis Diagnosis: Principal ICD Code: F29 - Unspecified psychosis not due to a substance or known physiological condition Status: Acute Pt Condition on Discharge: Guarded (because AMA discharge) Discharge Disposition: Discharge Home Discharge Instructions Diet Instructions: As Tolerated, No Restrictions Activities you can perform: Weight Bearing as [place] Scheduled Appointment: refused follow up Medication Profile: No Active Prescriptions or Reported Meds Discharge Time <= 30 minutes Mental Status Examination Appearance: Disheveled Consciousness: Alert Orientation: x4 Motor Activity: Other (no abnormal motor movements noted) Speech: Slow Language: Other (vague and rambling) Fund of Knowledge: Adequate Attention and Concentration: Easily Distracted Memory: Unremarkable Mood: Other (calm) Affect: Blunt (somewhat odd affect) Thought Process & Associations: Other (vague) Thought Content: Thought blocking Hallucination Type: None Delusion Type: None Suicidal Ideation: No Homicidal Ideation: No Insight: Poor Judgment: Poor Discharge/Advance Care Plan Health Problems: (1) Psychosis Goals to promote your health * To prevent worsening of your condition and complications * To maintain your health at the optimal level Directions to meet your goals Take your medications as prescribed Follow your dietary instruction Follow activity as directed Keep your appointments as scheduled Take your immunizations and boosters as scheduled If your symptoms worsen call your PCP, if no PCP go to Urgent Care Center or Emergency Room For 11/11 questions related to your inpatient stay or results of tests pending at discharge, please contact Dr. Lasha Crawford at Smoking is Dangerous to Your Health. Avoid second hand smoking Problem Qualifiers (1) Psychosis: Qualified Codes: F28 - Other psychotic disorder not due to a substance or known physiological condition Lasha Crawford MD Jun 05, 2017 10:10
== END 2017-06-05 12:40 | disposition left against medical advice (07) | DRG 885 ==
LOC: NEPJ 17:14 → NEDA 05-30 09:01 → H270 05-30 17:38
PROVIDERS: ADMIT Psychiatry & Neurology Psychiatry; ATTEND Psychiatry & Neurology Psychiatry
DX: F28 Other psychotic disorder not due to a substance or known physiological condition (principal); Z91.19 Patient's noncompliance with other medical treatment and regimen; R45.851 Suicidal ideations; M19.90 Unspecified osteoarthritis, unspecified site; G47.00 Insomnia, unspecified; Z81.8 Family history of other mental and behavioral disorders
CPT/HCPCS: 80048; 80053; 80061; 80307; 83036; 84443; 85025